=== PATIENT | female | born 1930 | race Caucasian/White ===

== ENCOUNTER 2018-05-27 19:43 | Inpatient (IN) | payer MEDICARE, OTHER, SELFPAY ==
[~2018-05-27] VITALS: Ht 167.6 cm; Wt 83.1 kg
[2018-05-27] MEDS ORDERED: ONDANSETRON 2MG/ML, 2ML IVPush ONE (20:30)
[2018-05-27] MEDS ORDERED: MORPHINE SULFATE 4 MG/ML, 1ML IVPush PRN ×2 (20:30→21:30)
[2018-05-27 20:53] LABS: MEAN CORPUSCULAR HEMOGLOBIN 31.3 pg (27.0-34.8); MEAN CORPUSCULAR HGB CONC 33.7 g/dL (32.4-35.8); MEAN PLATELET VOLUME 7.8 fL (7.4-10.4); PLATELET COUNT 228 x10^3/uL (130-400); RED BLOOD COUNT 4.32 x10^6/uL (3.82-5.3); RED CELL DISTRIBUTION WIDTH 13.4 % (9.6-15.2)
[2018-05-27 20:58] LABS: ALBUMIN 3.6 g/dL (3.4-5.0); ANION GAP 10 mmol/L (5-15); CALCIUM 8.7 mg/dL (8.5-10.1); CHLORIDE 96 mmol/L (98-107)
[2018-05-27 21:02] LABS: ALANINE AMINOTRANSFERASE 29 U/L (12-78); ALKALINE PHOSPHATASE 84 U/L (45-117); BILIRUBIN,TOTAL 0.8 mg/dL (0.2-1.0); TOTAL PROTEIN 7.3 g/dL (6.4-8.2)
[2018-05-27] MEDS ORDERED: MORPHINE SULFATE 4 MG/ML, 1ML ONE (21:17)
[2018-05-27] MEDS ORDERED: ONDANSETRON 2MG/ML, 2ML ONE (21:17)
[2018-05-27 21:19] LABS: BASOPHILS % (AUTO) 0 % (0-1); EOSINOPHILS % (AUTO) 0 % (1-7); LYMPHOCYTES # (AUTO) 0.49 x10^3/uL (1-3.4); LYMPHOCYTES % (AUTO) 3 % (22-44); MD SCAN; MONOCYTES # (AUTO) 0.83 x10^3/uL (0.2-0.8); MONOCYTES % (AUTO) 4 % (2-9); NEUTROPHILS # (AUTO) 18.61 x10^3/uL (1.8-6.8); NEUTROPHILS % (AUTO) 93 % (42-75)
[2018-05-27] MEDS ORDERED: SODIUM CHLORIDE 0.9% 1,000 ML IV ONE (21:22)
[2018-05-27] MEDS ORDERED: ONDANSETRON 2MG/ML, 2ML IVPush PRN ×2 (21:30→22:00)
[2018-05-27] MEDS ORDERED: LEVO25TA4 PO (21:32)
[2018-05-27] MEDS ORDERED: SIMV20TA3 PO (21:32)
[2018-05-27] MEDS ORDERED: OMEG1CAP25 PO (21:32)
[2018-05-27] MEDS ORDERED: VALS160T3 PO (21:32)
[2018-05-27] MEDS ORDERED: VIT1TABL32 PO (21:32)
[2018-05-27] MEDS ORDERED: GLUC1TAB55 PO (21:32)
[2018-05-27] MEDS ORDERED: CALC-118 PO (21:32)
[2018-05-27] MEDS ORDERED: HYDR25TA6 PO (21:32)
[2018-05-27] MEDS ORDERED: OXYB5TAB7 PO (21:32)
[2018-05-27] MEDS ORDERED: ACETAMINOPHEN 325 MG TABLET PO PRN (22:00)
[2018-05-27] MEDS ORDERED: BACLOFEN 10 MG TABLET PO PRN (22:00)
[2018-05-27] MEDS ORDERED: POLYETHYLENE GLYCOL 17 GM PACKET PO PRN (22:00)
[2018-05-27] MEDS ORDERED: morphine SULFATE 10 MG/ML, 1ML IVPush PRN (22:00)
[2018-05-27] MEDS ORDERED: DOCUSATE 100 MG CAPSULE PO PRN (22:00)
[2018-05-27 22:55] VITALS: BP 156/77
[2018-05-27 23:49] VITALS: BP 156/77
[2018-05-28] MEDS ORDERED: DIPHENHYDRAMINE 25 MG CAPSULE ONE (01:09)
[2018-05-28] MEDS: DIPHENHYDRAMINE 25 MG CAPSULE PO PRN (01:15)
[2018-05-28] MEDS: HYDROcodone/APAP 5/325 TABLET PO PRN (01:15)
[2018-05-28 01:20] VITALS: BP 157/73
[2018-05-28] MEDS: NS + 20MEQ KCL 1,000 ML IV SCH ×2 (03:18→21:55)
[2018-05-28 05:38] LABS: ANION GAP 8 mmol/L (5-15); CALCIUM 8.2 mg/dL (8.5-10.1); CHLORIDE 97 mmol/L (98-107)
[2018-05-28 05:40] LABS: CREATININE 0.98 mg/dL (0.55-1.02)
[2018-05-28] MEDS: VALSARTAN 160 MG TABLET PO SCH (08:00)
[2018-05-28] MEDS: OXYBUTYNIN CHLORIDE 5 MG TABLET PO SCH (08:00)
[2018-05-28] MEDS: LEVOTHYROXINE 25 MCG TABLET PO SCH (08:00)
[2018-05-28] MEDS: FAMOTIDINE 20 MG TABLET PO SCH ×2 (08:00→21:55)
[2018-05-28] MEDS: SENNA/DOCUSATE TABLET PO SCH (08:04)
[2018-05-28] MEDS ORDERED: MAGNESIUM SULFATE PMX 2GM/50ML 50 ML IV ONE ×2 (08:30→15:00)
[2018-05-28 09:16] VITALS: BP 157/63
[2018-05-28] MEDS ORDERED: FENTANYL PF 100 MCG/2ML ONE ×2 (09:35→10:50)
[2018-05-28] MEDS ORDERED: PROPOFOL 10 MG/ML, 20ML ONE (10:25)
[2018-05-28] MEDS ORDERED: ONDANSETRON 2MG/ML, 2ML ONE (10:25)
[2018-05-28] MEDS ORDERED: CEFAZOLIN 1,000 MG ONE (10:25)
[2018-05-28] MEDS ORDERED: DEXAMETHASONE 4 MG/ML, 1ML ONE (10:25)
[2018-05-28] MEDS ORDERED: OXYcodone 5 MG/5 ML ORAL.SOL UDC ONE (10:50)
[2018-05-28] MEDS: FENTANYL PF 100 MCG/2ML IV PRN ×2 (10:50→11:00)
[2018-05-28] MEDS ORDERED: SUCCINYLCHOLINE 20 MG/ML, 10ML ONE (10:59)
[2018-05-28] MEDS ORDERED: ONDANSETRON 2MG/ML, 2ML IV PRN (11:00)
[2018-05-28] MEDS ORDERED: LABETALOL 5MG/ML, 20ML IV PRN (11:00)
[2018-05-28] MEDS ORDERED: ACETAMINOPHEN 325 MG TABLET PO PRN (11:00)
[2018-05-28] MEDS ORDERED: OXYcodone 5 MG/5 ML ORAL.SOL UDC PO PRN (11:00)
[2018-05-28] MEDS ORDERED: ACETAMINOPHEN 650 MG/20.3 ML UDC ONE (11:06)
[2018-05-28] MEDS ORDERED: hydrALAzine 20 MG/ML, 1ML ONE (11:49)
[2018-05-28 15:34] VITALS: BP 110/65
[2018-05-28 18:31] VITALS: BP 101/56
[2018-05-28] MEDS: SIMVASTATIN 20 MG TABLET PO SCH (21:56)
[2018-05-29] MEDS: DIPHENHYDRAMINE 25 MG CAPSULE PO PRN (01:10)
[2018-05-29 03:18] VITALS: BP 166/79
[2018-05-29] MEDS: LEVOTHYROXINE 25 MCG TABLET PO SCH (06:29)
[2018-05-29 07:09] VITALS: BP 142/76
[2018-05-29] MEDS: SENNA/DOCUSATE TABLET PO SCH (08:35)
[2018-05-29] MEDS: FAMOTIDINE 20 MG TABLET PO SCH ×2 (08:37→20:18)
[2018-05-29] MEDS: OXYBUTYNIN CHLORIDE 5 MG TABLET PO SCH ×2 (08:38→10:58)
[2018-05-29] MEDS: VALSARTAN 160 MG TABLET PO SCH ×2 (08:40→10:58)
[2018-05-29 09:53] LABS: BASOPHILS # (AUTO) 0.01 x10^3/uL (0-0.1); BASOPHILS % (AUTO) 0 % (0-1); EOSINOPHILS # (AUTO) 0.01 x10^3/uL (0-0.4); EOSINOPHILS % (AUTO) 0 % (1-7); LYMPHOCYTES # (AUTO) 0.86 x10^3/uL (1-3.4); LYMPHOCYTES % (AUTO) 6 % (22-44); MD NO; MEAN CORPUSCULAR HEMOGLOBIN 32.1 pg (27.0-34.8); MEAN CORPUSCULAR HGB CONC 33.9 g/dL (32.4-35.8); MEAN CORPUSCULAR VOLUME 94.7 fL (80-100); MEAN PLATELET VOLUME 7.6 fL (7.4-10.4); MONOCYTES % (AUTO) 7 % (2-9); NEUTROPHILS # (AUTO) 13.77 x10^3/uL (1.8-6.8); NEUTROPHILS % (AUTO) 87 % (42-75); PLATELET COUNT 146 x10^3/uL (130-400); RED BLOOD COUNT 2.84 x10^6/uL (3.82-5.3); RED CELL DISTRIBUTION WIDTH 13.6 % (9.6-15.2)
[2018-05-29 09:56] LABS: ANION GAP 8 mmol/L (5-15); CALCIUM 6.9 mg/dL (8.5-10.1); CHLORIDE 94 mmol/L (98-107); CREATININE 0.91 mg/dL (0.55-1.02)
[2018-05-29 14:23] VITALS: BP 135/71
[2018-05-29] MEDS: HYDROcodone/APAP 5/325 TABLET PO PRN (17:43)
[2018-05-29 19:25] VITALS: BP 117/62
[2018-05-29] MEDS: SIMVASTATIN 20 MG TABLET PO SCH (20:18)
[2018-05-30 01:24] VITALS: BP 129/75
[2018-05-30] MEDS: HYDROcodone/APAP 5/325 TABLET PO PRN (02:23)
[2018-05-30] MEDS: LEVOTHYROXINE 25 MCG TABLET PO SCH ×2 (05:44→09:25)
[2018-05-30 06:43] VITALS: BP 129/82
[2018-05-30] MEDS ORDERED: TEMPLATE NON-FORMULARY MED. (Glucosamine/D3/Boswellia Serra** (Osteo Bi-Flex Caplet**) 1 T PO SCH (09:00)
[2018-05-30] MEDS: FAMOTIDINE 20 MG TABLET PO SCH ×2 (09:24→19:47)
[2018-05-30] MEDS: CALCIUM/VITAMIN D3 250-125 TABLET PO SCH (09:24)
[2018-05-30] MEDS: MULTIVITAMINS/MINERALS TABLET PO SCH (09:24)
[2018-05-30] MEDS: SENNA/DOCUSATE TABLET PO SCH (09:24)
[2018-05-30] MEDS: VALSARTAN 160 MG TABLET PO SCH (09:25)
[2018-05-30] MEDS: OXYBUTYNIN CHLORIDE 5 MG TABLET PO SCH (09:26)
[2018-05-30 12:54] VITALS: BP 122/71
[2018-05-30] MEDS ORDERED: MAGNESIUM HYDROXIDE 8%, 30ML UDC ONE (16:25)
[2018-05-30] MEDS ORDERED: MAGNESIUM HYDROXIDE 8%, 30ML UDC PO PRN (16:25)
[2018-05-30] MEDS: SIMVASTATIN 20 MG TABLET PO SCH (19:48)
[2018-05-30 20:33] VITALS: BP 131/56
[2018-05-30] MEDS: DIPHENHYDRAMINE 25 MG CAPSULE PO PRN (22:25)
[2018-05-31 02:14] VITALS: BP 123/77
[2018-05-31] MEDS: LEVOTHYROXINE 25 MCG TABLET PO SCH (06:03)
[2018-05-31 07:09] VITALS: BP 143/74
[2018-05-31] MEDS ORDERED: BISACODYL 10 MG SUPP ONE (08:49)
[2018-05-31] MEDS: VALSARTAN 160 MG TABLET PO SCH (08:51)
[2018-05-31] MEDS: SENNA/DOCUSATE TABLET PO SCH (08:51)
[2018-05-31] MEDS: CALCIUM/VITAMIN D3 250-125 TABLET PO SCH (08:51)
[2018-05-31] MEDS: MULTIVITAMINS/MINERALS TABLET PO SCH (08:51)
[2018-05-31] MEDS: FAMOTIDINE 20 MG TABLET PO SCH (08:51)
[2018-05-31] MEDS: OXYBUTYNIN CHLORIDE 5 MG TABLET PO SCH (08:52)
[2018-05-31] MEDS ORDERED: BISACODYL 10 MG SUPP PR PRN (09:00)
[2018-05-31 12:28] VITALS: BP 139/72
[2018-05-31] MEDS: HYDROcodone/APAP 5/325 TABLET PO PRN (12:44)
== END 2018-05-31 13:30 | DRG 481 ==
LOC: ED 21:15 → SUATTDRO 21:25 → EDIP 21:34 → 4NOR 22:40
PROVIDERS: ADMIT Family Medicine; ATTEND Family Medicine
PROC: 0QS736Z Reposition Left Upper Femur with Intramedullary Internal Fixation Device, Percutaneous Approach (ICD-10-PCS; principal; 2018-05-28 11:00)
DX: S72.142A Displaced intertrochanteric fracture of left femur, initial encounter for closed fracture (principal); E87.1 Hypo-osmolality and hyponatremia; I10 Essential (primary) hypertension; D72.829 Elevated white blood cell count, unspecified; E03.9 Hypothyroidism, unspecified; E78.5 Hyperlipidemia, unspecified; E83.42 Hypomagnesemia; E87.6 Hypokalemia; K59.00 Constipation, unspecified; W01.0XXA Fall on same level from slipping, tripping and stumbling without subsequent striking against object, initial encounter; Y93.89 Activity, other specified; Y92.89 Other specified places as the place of occurrence of the external cause; Y99.8 Other external cause status; Z83.3 Family history of diabetes mellitus
CPT/HCPCS: 36415; 71045; 74018; 76000; 80048; 80053; 83735; 84443; 85025; 93005; 96361; 96374; 96375; C1713; G0378; J0690; J1100; J2405; J2704; J3010; J3480; J0330; J3475; J7030; Q0163

== ENCOUNTER 2018-06-08 12:34 | Inpatient (IN) | payer MEDICARE ==
[~2018-06-08] VITALS: Ht 167.6 cm; Wt 75.2 kg
[~2018-06-08 12:34] MED LIST: CALC-118 PO; GLUC1TAB55 PO; HYDR25TA6 PO; LEVO25TA4 PO; OMEG1CAP25 PO; OXYB5TAB7 PO; SIMV20TA3 PO; VALS160T3 PO; VIT1TABL32 PO
[2018-06-08] MEDS ORDERED: ATOR10TA PO (13:29)
[2018-06-08] MEDS ORDERED: HYDR-3240 PO (13:29)
[2018-06-08] MEDS ORDERED: MELA3TAB2 PO (13:29)
[2018-06-08] MEDS ORDERED: ONDA4TAB7 PO (13:29)
[2018-06-08] MEDS ORDERED: LOSA100T7 PO (13:29)
[2018-06-08 13:57] LABS: BASOPHILS # (AUTO) 0.03 x10^3/uL (0-0.1); BASOPHILS % (AUTO) 0 % (0-1); EOSINOPHILS # (AUTO) 0.03 x10^3/uL (0-0.4); EOSINOPHILS % (AUTO) 0 % (1-7); LYMPHOCYTES # (AUTO) 0.86 x10^3/uL (1-3.4); LYMPHOCYTES % (AUTO) 10 % (22-44); MD NO; MEAN CORPUSCULAR HGB CONC 33.6 g/dL (32.4-35.8); MEAN CORPUSCULAR VOLUME 92.4 fL (80-100); MEAN PLATELET VOLUME 6.9 fL (7.4-10.4); MONOCYTES # (AUTO) 0.69 x10^3/uL (0.2-0.8); MONOCYTES % (AUTO) 8 % (2-9); NEUTROPHILS # (AUTO) 7.22 x10^3/uL (1.8-6.8); NEUTROPHILS % (AUTO) 82 % (42-75); PLATELET COUNT 426 x10^3/uL (130-400); RED BLOOD COUNT 2.96 x10^6/uL (3.82-5.3); RED CELL DISTRIBUTION WIDTH 14.1 % (9.6-15.2)
[2018-06-08 14:02] LABS: ALBUMIN 2.6 g/dL (3.4-5.0); ANION GAP 8 mmol/L (5-15); CALCIUM 8.2 mg/dL (8.5-10.1); CHLORIDE 86 mmol/L (98-107)
[2018-06-08] MEDS ORDERED: SODIUM CHLORIDE 0.9% 1,000 ML IV ONE (14:28)
[2018-06-08] MEDS ORDERED: hydrALAzine 20 MG/ML, 1ML IVPush PRN (15:00)
[2018-06-08] MEDS ORDERED: LABETALOL 5MG/ML, 20ML IVPush PRN (15:00)
[2018-06-08] MEDS ORDERED: SODIUM CHLORIDE FLUSH 10ML SYR IVF PRN (15:00)
[2018-06-08] MEDS ORDERED: ONDANSETRON 4 MG TABLET PO PRN (15:30)
[2018-06-08] MEDS ORDERED: SODIUM CHLORIDE 0.9%, 500ML IVBOLUS ONE (15:30)
[2018-06-08] MEDS: SODIUM CHLORIDE 0.9% 1,000 ML IV SCH (15:30)
[2018-06-08 16:38] LABS: THYROID STIMULATING HORMONE 2.67 mIU/L (0.358-3.740)
[2018-06-08 16:50] VITALS: BP 133/72
[2018-06-08 16:58] VITALS: BP 121/68
[2018-06-08 17:15] LABS: HEMOGLOBIN A1C 5.6 % (4.2-6.3)
[2018-06-08] MEDS ORDERED: ERGOCALCIFEROL 50,000 UNIT CAPSULE PO SCH (17:30)
[2018-06-08 20:23] VITALS: BP 117/65
[2018-06-08] MEDS: HEPARIN 5,000 UNITS/ML, 1ML SQ SCH (20:48)
[2018-06-08] MEDS: ACETAMINOPHEN 325 MG TABLET PO PRN (20:49)
[2018-06-08] MEDS: MELATONIN 3 MG TABLET PO PRN (20:49)
[2018-06-08] MEDS: ATORVASTATIN 10 MG TABLET PO SCH (20:49)
[2018-06-09 00:36] VITALS: BP 130/63
[2018-06-09] MEDS: HEPARIN 5,000 UNITS/ML, 1ML SQ SCH ×3 (05:25→20:23)
[2018-06-09] MEDS: SODIUM CHLORIDE 0.9% 1,000 ML IV SCH ×3 (05:25→18:09)
[2018-06-09 05:45] LABS: CHOL/HDL RATIO 2.6; LDL/HDL RATIO 1.3 (0.5-3.0)
[2018-06-09 06:43] VITALS: BP 124/54
[2018-06-09 08:15] LABS: ANION GAP 10 mmol/L (5-15); CALCIUM 8.1 mg/dL (8.5-10.1); CHLORIDE 90 mmol/L (98-107); CREATININE 0.97 mg/dL (0.55-1.02)
[2018-06-09] MEDS: LEVOTHYROXINE 25 MCG TABLET PO SCH (08:20)
[2018-06-09] MEDS: IRON SUCROSE COMPLEX 100MG/5ML IV SCH (08:20)
[2018-06-09] MEDS: OXYBUTYNIN CHLORIDE 5 MG TABLET PO SCH (08:20)
[2018-06-09 08:47] LABS: BASOPHILS # (AUTO) 0.04 x10^3/uL (0-0.1); BASOPHILS % (AUTO) 1 % (0-1); EOSINOPHILS # (AUTO) 0.06 x10^3/uL (0-0.4); EOSINOPHILS % (AUTO) 1 % (1-7); LYMPHOCYTES # (AUTO) 0.94 x10^3/uL (1-3.4); LYMPHOCYTES % (AUTO) 12 % (22-44); MD NO; MEAN CORPUSCULAR HEMOGLOBIN 31.4 pg (27.0-34.8); MEAN CORPUSCULAR VOLUME 92.2 fL (80-100); MEAN PLATELET VOLUME 7.4 fL (7.4-10.4); MONOCYTES # (AUTO) 0.84 x10^3/uL (0.2-0.8); MONOCYTES % (AUTO) 11 % (2-9); NEUTROPHILS # (AUTO) 5.85 x10^3/uL (1.8-6.8); NEUTROPHILS % (AUTO) 76 % (42-75); PLATELET COUNT 406 x10^3/uL (130-400); RED BLOOD COUNT 2.86 x10^6/uL (3.82-5.3); RED CELL DISTRIBUTION WIDTH 13.8 % (9.6-15.2)
[2018-06-09 11:07] LABS: CHLORIDE,URINE RANDOM 41 mmol/L; POTASSIUM,URINE RANDOM 11 mmol/L; SODIUM,URINE RANDOM 37 mmol/L
[2018-06-09 11:23] LABS: CREATININE,URINE RANDOM 16.1 mg/dL
[2018-06-09 12:08] VITALS: BP 118/70
[2018-06-09 20:00] VITALS: BP 147/72
[2018-06-09] MEDS: ACETAMINOPHEN 325 MG TABLET PO PRN (20:23)
[2018-06-09] MEDS: MELATONIN 3 MG TABLET PO PRN (20:23)
[2018-06-09] MEDS: ATORVASTATIN 10 MG TABLET PO SCH (20:24)
[2018-06-10 03:09] VITALS: BP 154/73
[2018-06-10] MEDS: HEPARIN 5,000 UNITS/ML, 1ML SQ SCH ×2 (05:17→13:55)
[2018-06-10] MEDS: SODIUM CHLORIDE 0.9% 1,000 ML IV SCH (06:29)
[2018-06-10 06:44] VITALS: BP 146/75
[2018-06-10 08:36] LABS: ANION GAP 5 mmol/L (5-15); CALCIUM 7.9 mg/dL (8.5-10.1); CHLORIDE 95 mmol/L (98-107); CREATININE 0.62 mg/dL (0.55-1.02)
[2018-06-10] MEDS: OXYBUTYNIN CHLORIDE 5 MG TABLET PO SCH (08:46)
[2018-06-10] MEDS: LEVOTHYROXINE 25 MCG TABLET PO SCH (08:46)
[2018-06-10] MEDS: IRON SUCROSE COMPLEX 100MG/5ML IV SCH (08:46)
[2018-06-10 12:13] VITALS: BP 145/74
[2018-06-10] MEDS ORDERED: IRON100V IV (14:58)
[2018-06-10] MEDS ORDERED: ERGO500017 PO (14:58)
== END 2018-06-10 16:14 | DRG 920 ==
LOC: ED 14:20 → EDIP 14:59 → 4WST 15:57
PROVIDERS: ADMIT Family Medicine; ATTEND Family Medicine
DX: M96.840 Postprocedural hematoma of a musculoskeletal structure following a musculoskeletal system procedure (principal); E87.1 Hypo-osmolality and hyponatremia; Y83.8 Other surgical procedures as the cause of abnormal reaction of the patient, or of later complication, without mention of misadventure at the time of the procedure; D64.9 Anemia, unspecified; E03.9 Hypothyroidism, unspecified; I10 Essential (primary) hypertension; E78.5 Hyperlipidemia, unspecified; Z60.2 Problems related to living alone; Z83.3 Family history of diabetes mellitus; Y92.89 Other specified places as the place of occurrence of the external cause
CPT/HCPCS: 36415; 80048; 80061; 82040; 82306; 82436; 82533; 82570; 82607; 82728; 83036; 83540; 83550; 83735; 83930; 83935; 84100; 84133; 84300; 84443; 84550; 85025; 93005; 99285; G0378; J1644; J1756; J7030; J7040